=== PATIENT | female | born 1975 | race Caucasian/White ===

== ENCOUNTER 2017-12-23 15:25 | Outpatient (CLI) | payer BC ==
--- NOTE | 2017-12-24 07:42 | RAD ---
CHEST TWO VIEWS: 12/23/17 No prior films were available for comparison. The heart is normal in size. The lungs show no acute in filtrate to suggest pneumonia. There are no effusions. The mediastinum was unremarkable. Degenerative changes are present in the spine. IMPRESSION: No acute thoracic finding. POS: HOME
== END 2017-12-23 15:26 | disposition home or self-care (01) ==
LOC: BURRAD 15:25
DX: J40 Bronchitis, not specified as acute or chronic (principal)
CPT/HCPCS: 71046

== ENCOUNTER 2020-10-08 08:59 | Outpatient (CLI) | payer BC | END 2020-10-08 09:00 | disposition home or self-care (01) | LOC: BUREKG 08:59 | PROVIDERS: ATTEND Physician Assistant | DX: R00.2 Palpitations (principal) | CPT/HCPCS: 93005; 93010 ==

== ENCOUNTER 2020-12-09 10:45 | Outpatient (CLI) | payer BC ==
--- NOTE | 2020-12-09 17:28 | RAD ---
LEFT GREAT TOE: Date: 12-09-2020 FINDINGS: Exam in three views shows a nondisplaced fracture of the distal phalanx of the great toe. The IP join t is not involved. The other visible toes appear intact. IMPRESSION: Distal phalanx fracture. POS: HOME
--- NOTE | 2020-12-09 18:35 | RAD ---
LEFT FOOT THREE VIEWS: Date: 12-09-2020 FINDINGS: A transverse fracture through the distal phalanx of the great toe is noted. There is probably a longi tudinal component as well. There is little displacement. The remainder of the foot appears intact. So me periosteal prominence along the second metatarsal shaft could be from an old stress injury or age related. A moderate sized calcaneal spur was noted. IMPRESSION: Fracture of the distal phalanx of the great toe. POS: HOME
== END 2020-12-09 10:46 | disposition home or self-care (01) ==
LOC: BURRAD 10:45
PROVIDERS: ATTEND Physician Assistant
DX: M79.675 Pain in left toe(s) (principal); S92.422A Displaced fracture of distal phalanx of left great toe, initial encounter for closed fracture; W20.8XXA Other cause of strike by thrown, projected or falling object, initial encounter

== ENCOUNTER → 2023-11-30 | Day surgery (SDC) | payer BC ==
[~2023-11-30] MED LIST: Rabies Vaccine Human 2.5 UNITS VIAL ONE
== END ==
LOC: BUR/OP 15:30
PROVIDERS: ATTEND Emergency Medicine
DX: Z23 Encounter for immunization (principal)
CPT/HCPCS: 90471; 90675

== ENCOUNTER → 2023-12-11 | Day surgery (SDC) | payer BC ==
[2023-12-11 16:06] VITALS: BP 121/68; TEMP 98.2
== END ==
LOC: BUR/OP 15:31
PROVIDERS: ATTEND Emergency Medicine
DX: Z23 Encounter for immunization (principal)
CPT/HCPCS: 90471